=== PATIENT | female | born 1985 | race Caucasian/White ===

== ENCOUNTER → 2016-10-15 | Outpatient (CLI) | payer OTHER ==
[~2016-10-15] VITALS: Ht 170.2 cm; Wt 103.0 kg
[~2016-10-15] MED LIST: NEXI40CA PO; PRENTAB9 PO; diphenhydrAMINE 25 MG CAP PO ONE
[2016-10-15 11:09] VITALS: BP 127/69
--- NOTE | 2016-10-15 13:02 | IPNPDOC ---
Obstetrical Progress Note Date of Service The patient was seen on 10/15/16 at 12:38. Progress Note [id number] @ 1243 30 yo @ 37+6 by LMP and [id number] presents to L&D with c/o CTXs Q 5 -10 min. Reports she has had increased discharge today. Denies DFM, VB and LOF. GBS negative. S: Pt is uncomfortable with CTXs. She is able to talk through CTXs. Spouse is at bedside. Pt reports this happened with her last babe and she was induced after weeks of CTXs with no cervical change. Pt reports IC last night. Reports she was Fingertip in the clinic last week. States she has had CTX Q 3- 5 min since midnight and they have not changed. She continues to be able to walk and talk through the CTXs. O: VS: WNL, afebrile FHR: 130, moderate variability, + accels, no decels CTX: Q 2-7 min, lasting < 90 seconds, palpated as moderate, resting tone palpated as soft. SVE: 1/thick/high, soft/ant/vtx Sterile speculum exam: negative valsalva, negative pooling, negative nitrazine, negative ferning, + sperm noted on slide A: 30 yo @ 37+6 by LMP with an ELENA of [id number] presents to L&D in Latent Labor vs. False Labor. Reactive NST. P: Offered pt walk for 2 hours and return for a recheck or go home on quarters and try to rest. Pt would like to go home. Strict return precautions given to patient for increasing strength or increasing frequency of CTXs. If she unable to talk through the CTXs she needs to return to the hospital carmen. Strict return precautions for DFM, LOF and VB. Pt and spouse verbalized understanding. Pt given 25 mg of benadryl PO to assist the patient with rest at home. Jesse PEREZ CNM VS, I&O, 24H, Fishbone Vital Signs/I&O Vital Signs Date Time Temp Pulse Resp B/P Pulse Ox O2 Delivery O2 Flow Rate FiO2 10/15/16 11:09 98.6 65 18 127/69 JESSE RHODES CNM Oct 15, 2016 13:02
== END | disposition home or self-care (01) ==
LOC: M LDO 10:50
PROVIDERS: ATTEND Midwife
DX: O47.1 False labor at or after 37 completed weeks of gestation (principal); Z3A.37 37 weeks gestation of pregnancy

== ENCOUNTER 2016-10-18 00:18 | Outpatient (CLI) | payer OTHER ==
[~2016-10-18 00:18] MED LIST changes: -diphenhydrAMINE 25 MG CAP PO ONE
== END 2016-10-18 02:50 | disposition home or self-care (01) ==
LOC: M LDO 00:18
PROVIDERS: ATTEND Advanced Practice Midwife
DX: O47.1 False labor at or after 37 completed weeks of gestation (principal); Z3A.38 38 weeks gestation of pregnancy; O40.3XX0 Polyhydramnios, third trimester, not applicable or unspecified

== ENCOUNTER 2016-10-30 09:48 | Inpatient (IN) | payer OTHER ==
[2016-10-30] VITALS (23 sets, daily range): BP systolic 101–135; BP diastolic 55–75
[~2016-10-30] VITALS: Ht 170.2 cm; Wt 105.0 kg
[2016-10-30] MEDS ORDERED: LACTATED RINGER'S 1000 ML IV ONE (10:15)
[2016-10-30 10:34] LABS: MEAN CORPUSCULAR HEMOGLOBIN 30.5 pg (27.0-33.0); MEAN CORPUSCULAR HGB CONC 34.3 g/dl (32.0-36.5); MEAN CORPUSCULAR VOLUME 88.9 fl (80.0-96.0); RED CELL DISTRIBUTION WIDTH 12.5 % (11.5-14.5); WHITE BLOOD COUNT 12.8 K/mm3 (4.0-10.0)
[2016-10-30] MEDS ORDERED: FENTANYL 2MCG/ML ROPIVACAINE 0.2% NACL 250 ML CADD As Ordered ONE (10:38)
[2016-10-30] MEDS: LR 1,000 ML IV SCH (11:19)
[2016-10-30] MEDS ORDERED: ONDANSETRON 4MG/2ML VIAL (J2405) IV PRN (12:30)
[2016-10-30] MEDS ORDERED: ePHEDrine SULFATE 25 MG/5 ML(5MG/ML) SYRINGE IV PRN (12:30)
[2016-10-30] MEDS ORDERED: REFRIGERATOR IV KEYS XX PRN (12:30)
[2016-10-30] MEDS ORDERED: EPIDURAL COMMENT XX SCH (12:30)
[2016-10-30] MEDS ORDERED: diphenhydrAMINE INJ 50MG/ML VIAL (J1200) IV PRN (12:30)
[2016-10-30] MEDS ORDERED: NALOXONE INJ 0.4 MG/1 ML VIAL (J2310) IV PRN (12:30)
[2016-10-30] MEDS ORDERED: LACTATED RINGER'S 1000 ML IV PRN (12:30)
[2016-10-30] MEDS ORDERED: EPIDURAL/PCA KEYS XX PRN (12:30)
[2016-10-30] MEDS ORDERED: FENTANYL/ROPIVACAINE/NACL CADD 250 ML EPIDURAL SCH (12:30)
[2016-10-30] MEDS ORDERED: OXYTOCIN 30 UNITS IN 0.9% NaCl 500ML IV BAG (J2590) As Ordered ONE (13:33)
[2016-10-30 14:18] LABS: CORD GAS ABE A -4.4; CORD GAS ABE V -4.1; CORD GAS HCO3 A 25.3 MEQ/L; CORD GAS HCO3 V 21.7 MEQ/L; CORD GAS O2 SAT A 20.6 %; CORD GAS PCO2 A 66.6 mmHg; CORD GAS PCO2 V 42.2 mmHg; CORD GAS PH A 7.198 UNITS; CORD GAS PH V 7.329 UNITS; CORD GAS PO2 A 15.3 mmHg; CORD GAS PO2 V 22.4 mmHg; CORD GAS TCO2 A 27.4 MEQ/L
[2016-10-30] MEDS ORDERED: OXYTOCIN DRIP 30 UNITS in APPROPRIATE DILUENT 1 EA IV SCH (15:28)
[2016-10-30] MEDS ORDERED: MEASLES,MUMPS,RUBELLA VACCINE INJ (MMR-II) (90707) SC SCH (15:30)
[2016-10-30] MEDS ORDERED: DIBUCAINE 1% OINTMENT 30GM TOP PRN (15:30)
[2016-10-30] MEDS ORDERED: RHOGAM 300 MCG (1500 IU) INJ (J2790) IM SCH (15:30)
[2016-10-30] MEDS ORDERED: OXYTOCIN INJ 10 UNITS/ML VIAL (J2590) IV ONE (15:30)
[2016-10-30] MEDS ORDERED: ANUSOL HC CREAM 30GM TOP PRN (15:30)
[2016-10-30] MEDS ORDERED: MOM 30ML SUSPENSION UDC PO PRN (15:30)
[2016-10-30] MEDS ORDERED: DOCUSATE SODIUM 100 MG CAP PO PRN (15:30)
[2016-10-30] MEDS ORDERED: METHYLERGONOVINE MALEATE 0.2 MG TAB PO PRN (15:30)
[2016-10-30] MEDS ORDERED: LIDOCAINE 1% SDV 5 ML VIAL SC ONE (15:45)
[2016-10-30] MEDS ORDERED: ACETAMINOPHEN SUSP 160 MG/5 ML UDC PO PRN (15:45)
[2016-10-30] MEDS ORDERED: OXYTOCIN INJ 10 UNITS/ML VIAL (J2590) As Ordered ONE (17:47)
--- NOTE | 2016-10-30 18:59 | DN ---
DATE: 10/30/2016 DELIVERY NOTE: This lady, came in in active labor, found to be 5-6 cm, bulging membranes, known history of polyhydramnios. With an epidural in place, she had a spontaneous rupture of membranes, a moderate amount of clear liquor, was of eventually found to be fully dilated in the POP position, delivered in occiput posterior position a live male infant weighing 3956 grams, 8 pounds 12 ounces. scores of 9 and 9 at one and five minutes respectively. Arterial and venous pH was performed. Arterial pH was 7.19, base excess -4.4, venous pH 7.32, base excess -4.1. Placenta delivered spontaneously thereafter. Three-vessel in the cord, membranes and tissues intact. Evaluation examination of the perineum, the lateral sidewalls, the cervix anteriorly all appeared to be intact. The uterus contracted well down on Pitocin. The patient and baby tolerated procedure well. Copy To: Farhat Dc OB
--- NOTE | 2016-10-30 19:01 | IPN ---
DATE: 10/30/2016 This patient and requested circumcision of their male . After discussing the risks and benefits of circumcision, the penile block and aftercare, signed and witnessed consent form after expressing understanding. We await the clearance by the lump maker. Copy To: Farhat CARTER
--- NOTE | 2016-10-30 19:07 | HPE ---
DATE OF ADMISSION: 10/30/2016 This lady is a 30-year-old 3, para 2, last menstrual period (LMP) 01/24/2016, estimated date of confinement (EDC) 10/30/2016 at 40 weeks gestation, active labor, 5-6 cm dilated, bulging membranes with polyhydramnios. Risk factor is transfer of care at 34 weeks, Rh negative and polyhydramnios. PAST HISTORY: 2010: 40 weeks, spontaneous vaginal delivery, female, 7 pounds 6 ounces. 2013: At 40 weeks, spontaneous vaginal delivery, male, 8 pounds 13 ounces. On examination today, she is distressed. Symphysis fundus height is 43, bulging membranes, 5-6 cm. Category one strip. She is GBS negative. There is no loss of fluid. The rest of her examination is she is normocephalic, atraumatic. Neck: Full range of motions. Pupils equal and reactive to light. Distal pulses are symmetric. No evidence of deep vein thrombosis (DVT) pulmonary embolism (PE), or superficial phlebitis. No wheezes or rhonchi. No costovertebral angle tenderness. Symphysis fundal height is 43. Four quadrant bowel sounds are noted. Membranes are intact. No rashes, lesions or pruritus. No arthralgia or myalgia. No complaint of cough, wheeze, shortness of breath or dyspnea on exertion. No chest pain. No bleeding. Neurologic: complete. No incontinence, urgency. No nausea, vomiting, diarrhea or constipation. No diabetic issues. No IC DESIGNER CUSTOM issues. Family history is noncontributory. She does not smoke or drink or abuse drugs. She is . There is no domestic violence. Labs show A negative, HIV negative, hepatitis negative, RPR negative, rubella immune. Varicella by history. Pap normal. Urine negative. Gonorrhea and chlamydia are negative. 1-hour glucose of 92 and GBS negative. In summary, we have a term gestation in active labor. Anticipate to hydrate, epidural and anticipate spontaneous vaginal delivery with controlled artificial rupture of membranes (AROM) if needed. Copy To: Farhat Dc OB
[2016-10-30] MEDS: IBUPROFEN 800 MG TAB PO PRN (22:35)
[2016-10-31 05:33] VITALS: BP 117/76
[2016-10-31 07:01] LABS: MEAN CORPUSCULAR HEMOGLOBIN 29.3 pg (27.0-33.0); MEAN CORPUSCULAR HGB CONC 32.8 g/dl (32.0-36.5); MEAN CORPUSCULAR VOLUME 89.4 fl (80.0-96.0); RED CELL DISTRIBUTION WIDTH 12.3 % (11.5-14.5)
[2016-10-31] MEDS: PRENATAL VITAMIN TAB PO SCH (07:32)
[2016-10-31] MEDS: IBUPROFEN 800 MG TAB PO PRN (14:22)
[2016-10-31 18:44] VITALS: BP 132/80
[2016-11-01] MEDS: IBUPROFEN 800 MG TAB PO PRN (05:44)
[2016-11-01 06:16] VITALS: BP 139/79
[2016-11-01] MEDS: PRENATAL VITAMIN TAB PO SCH (07:51)
[2016-11-01] MEDS ORDERED: ANUS2.5C2 TOP (09:49)
[2016-11-01] MEDS ORDERED: IBUP-1114 PO (09:49)
[2016-11-01] MEDS ORDERED: DIBU1OIN TOP (09:49)
--- NOTE | 2016-11-01 11:03 | IPN ---
DATE: 10/31/2016 This lady is a 1, now para 3 admitted for spontaneous active labor, delivered a live male , 8 pounds 12 ounces, 3956 grams, scores of 9 and 9 at 1 and 5 minutes, respectively. Arterial pH was 7.19, base excess -4.4, venous pH 7.32, base excess -4.1. Today, her blood pressure is 117/76, respirations are 18, pulse 91, temperature 97.6. Admitting hemoglobin is 12.7, hematocrit 36.9, platelets are 230. We discussed phlebitis, cystitis, mastitis, endometritis and cellulitis, diet, exercise, pain management, perineal, breast and wound care. control is going to be oral contraceptives at her 6-week checkup. The rest of the examination is unremarkable. She is neuro complete. Atraumatic. Neck with full range of motion. Pupils equal and reactive to light. Distal pulses are symmetric. No evidence of DVT, PE or superficial phlebitis. Chest is clear bilaterally to the bases. No wheezes or rhonchi. No costovertebral angle tenderness. Uterus two below. Lochia is moderate. Perineum is healing. She has no rash or lesions or pruritus. No arthralgia, myalgia. She is not complaining of cough, wheezes, shortness of breath or dyspnea on exertion. She is not bleeding. Neuro complete. No incontinency, urgency, or frequency. No nausea, vomiting, diarrhea or constipation. Our plan is for discharge tomorrow with oral contraceptives and routine medications. Followup in six weeks' time for visit.
--- NOTE | 2016-11-02 13:46 | DSES ---
DATE OF ADMISSION: 10/30/2016 DATE OF DISCHARGE: 11/01/2016 This lady is a 30-year-old 3 now para 3 who came in in spontaneous labor, delivered a live male 8 pounds 12 ounces, 3956 grams scores of 9 and 9 at one and five minutes, respectively. Arterial pH was 7.19, base excess -4.4, venous pH was 7.32, base excess -4.1. Her admitting hemoglobin was 12.7, hematocrit 36.9, platelets are 230. Discharge hemoglobin is 12.5, hematocrit 38.6 and platelets are 221. Her vital signs today, her blood pressure is 139/79, respirations are 18, pulse 72, temperature 96.6. The only issue she had was polyhydramnios at the time of delivery and it was noted in the pre delivery form. We discussed phlebitis, cystitis, mastitis, endometritis and cellulitis, diet, exercise, pain management, perineal, breast, and wound care. She is planning on using oral contraceptives. She was given her medications and oral contraceptives. Her oral contraceptives will be started in six weeks' time. Presently, she is normocephalic, atraumatic. Neck full range of motion. Pupils equal and reactive to light. Distal pulses are symmetric. No evidence of DVT, PE or superficial phlebitis. Chest is clear bilaterally to bases. No wheezes or rhonchi. Uterus is nontender. Four quadrant bowel sounds are noted. Uterus is two below. Perineum is healing. No rashes, lesions or pruritus. No arthralgia or myalgia. No complaints of cough, wheezes, shortness of breath or dyspnea on exertion. She has no chest pain. She is not bleeding. Neurologically complete. No incontinency, urgency, or frequency. No nausea, vomiting, diarrhea or constipation. No KILN PLACER issues. Past history is unremarkable. She does not smoke or drink or abuse drugs. She is . There is no domestic violence. In summary, we have a term gestation, delivered a live male infant, to be discharged today. Given her medications and has a 6-week appointment for checkup.
== END 2016-11-01 13:25 | disposition home or self-care (01) | DRG 775 ==
LOC: M LDO 09:48 → M LDI 10:02 → M OBS 16:41
PROVIDERS: ADMIT Obstetrics & Gynecology; ATTEND Obstetrics & Gynecology
PROC: 10E0XZZ Delivery of Products of Conception, External Approach (ICD-10-PCS; principal; 2016-10-30)
DX: O40.3XX0 Polyhydramnios, third trimester, not applicable or unspecified (principal); Z37.0 Single live birth; Z3A.40 40 weeks gestation of pregnancy; O48.0 Post-term pregnancy

== ENCOUNTER → 2017-01-19 | Day surgery (SDC) | payer OTHER ==
[~2017-01-19] VITALS: Ht 170.2 cm; Wt 89.4 kg
[~2017-01-19] MED LIST changes: +ANUS2.5C2 TOP; +BUPIVACAINE HCL 0.25% 30 ML VIAL As Ordered ONE; +DIBU1OIN TOP; +IBUP-1114 PO; +KETOROLAC 60 MG/2 ML VIAL (J1885) As Ordered ONE; +LIDOCAINE 1% MDV 20ML VIAL SC PRN; +LIDOCAINE 2% INJ 100 MG/5 ML SDV (FOR ANES.) As Ordered ONE; +LR 1,000 ML IV ONE; +MIDAZOLAM INJ 2 MG/2 ML VIAL (J2250) As Ordered ONE; +MULTCAP8 PO; +ONDANSETRON 4MG/2ML VIAL (J2405) As Ordered ONE; +ONDANSETRON 4MG/2ML VIAL (J2405) IV PRN; +PERCOCET 5MG/325MG TAB PO PRN; +PROPOFOL 200 MG/20 ML VIAL As Ordered ONE; +ROCURONIUM BROMIDE 50 MG/5 ML VIAL As Ordered ONE; +SILVER NITRATE APPLICATOR As Ordered ONE; +[UNRECOGNIZED DRUG - CODE] PO; +dexameTHASONE 4 MG/ML 1ML VIAL (J1100) As Ordered ONE; +fentaNYL 100 MCG/2 ML INJECTION (J3010) As Ordered ONE; +fentaNYL 100 MCG/2 ML INJECTION (J3010) IV PRN
[2017-01-19 09:05] LABS: CONTROL LINE HCG INT CTR LINE PRESENT
[2017-01-19 14:05] VITALS: BP 108/59
--- NOTE | 2017-01-19 22:03 | RO ---
DATE OF PROCEDURE: 01/19/2017 PREPROCEDURE DIAGNOSIS: Satisfied parity. POSTPROCEDURE DIAGNOSIS: Satisfied parity. PROCEDURE: Laparoscopic bilateral salpingectomy. SURGEON: Annette Horn MD BUSINESS LINE MANAGER: Bipin Gómez ANESTHESIA: STEPHANIE CLINICAL SERVICE: GARLAND MAKER INDICATION FOR OPERATION: Tess is a 31-year-old 3, para 3 desiring permanent sterilization, having satisfied parity. MATERIAL FORWARDED TO THE LAB: Bilateral fallopian tubes. DESCRIPTION OF FINDINGS: Exam under anesthesia revealed a 6-week size retroverted uterus of normal size, shape and contour with no adnexal masses. Laparoscopic findings included a normal uterus, fallopian tubes, ovaries, liver edge. Appendix was not visualized. She had a small amount of adhesion between the sigmoid colon and the left ovarian fossa. INFECTION CLASSIFICATION: 2. ESTIMATED BLOOD LOSS: 5 mL. IV FLUIDS: 1500 mL of lactated Ringer's. URINE OUTPUT: 600 mL. DESCRIPTION OF PROCEDURE: After obtaining informed consent, Tess was taken to the operating room. General endotracheal anesthesia was established, and she was placed in low lithotomy position. Exam under anesthesia was performed with the findings as noted above. She was prepped and draped in the usual sterile fashion, placed in Trendelenburg position. Guevara catheter was placed. Knott speculum was placed in the vagina and visualization of the cervix was obtained. Anterior lip of the cervix was grasped with a single-tooth tenaculum. A twtMoblka uterine manipulator was placed into the cervix, and the tenaculum was removed with site hemostasis observed. The bivalve speculum was removed. She was taken out of Trendelenburg position, and a 5 mm incision was made in the infraumbilical fold beneath the subcutaneous tissue. Chiquis clamp was used to spread the subcutaneous tissue. Lower abdominal wall was manually grabbed and lifted up and an Optiview trocar was placed at a 90-degree angle. Laparoscope was advanced through the port and intraabdominal placement was confirmed. Continuous flow carbon dioxide began to establish a pneumoperitoneum at 15 mmHg pressure. We then did a pelvic and abdominal survey with findings as previously described. Normal pelvic anatomy. No evidence of endometriosis. A small amount of adhesion located between the sigmoid colon and the left pelvic wall near the ovarian fossa. We then placed two more 5 mm trocars under direct visualization laterally in the right and left lower quadrants, taking care to avoid any prominent vessels. At that point, we used the LigaSure device to cauterize and excise both of the fallopian tubes, and they were lifted up through the ports. Complete hemostasis was noted in the pelvis on further inspection and the ports were removed after releasing the pneumoperitoneum. Incisions were reapproximated with #4-0 Monocryl and Dermabond. All instruments were removed from the vagina. The Hulka uterine manipulator was removed and silver nitrate was used for hemostasis of that site on the cervix. All counts were correct times twoChristophe Pulido tolerated the procedure well, and she was awakened from general anesthesia and taken to the recovery room in good condition. JI
== END | disposition home or self-care (01) ==
LOC: M SDC 07:36
PROVIDERS: ATTEND Obstetrics & Gynecology
DX: Z30.2 Encounter for sterilization (principal); Z87.891 Personal history of nicotine dependence
CPT/HCPCS: 36415; 58661; 84703; 85014; 85018; 86850; 86870; 86900; 86901; 88302; J1100; J1885; J2250; J2405; J3010

== ENCOUNTER → 2018-05-25 | Outpatient (CLI) | payer OTHER ==
[~2018-05-25] MED LIST changes: -ANUS2.5C2 TOP; -BUPIVACAINE HCL 0.25% 30 ML VIAL As Ordered ONE; -DIBU1OIN TOP; +GASTROGRAFIN SOLUTION 30ML (Q9963) As Ordered; -IBUP-1114 PO; +ISOVUE-370 76% 100ML VIAL (Q9967) As Ordered; -KETOROLAC 60 MG/2 ML VIAL (J1885) As Ordered ONE; -LIDOCAINE 1% MDV 20ML VIAL SC PRN; -LIDOCAINE 2% INJ 100 MG/5 ML SDV (FOR ANES.) As Ordered ONE; -LR 1,000 ML IV ONE; -MIDAZOLAM INJ 2 MG/2 ML VIAL (J2250) As Ordered ONE; -MULTCAP8 PO; -NEXI40CA PO; -ONDANSETRON 4MG/2ML VIAL (J2405) As Ordered ONE; -ONDANSETRON 4MG/2ML VIAL (J2405) IV PRN; -PERCOCET 5MG/325MG TAB PO PRN; -PRENTAB9 PO; -PROPOFOL 200 MG/20 ML VIAL As Ordered ONE; -ROCURONIUM BROMIDE 50 MG/5 ML VIAL As Ordered ONE; -SILVER NITRATE APPLICATOR As Ordered ONE; -[UNRECOGNIZED DRUG - CODE] PO; -dexameTHASONE 4 MG/ML 1ML VIAL (J1100) As Ordered ONE; -fentaNYL 100 MCG/2 ML INJECTION (J3010) As Ordered ONE; -fentaNYL 100 MCG/2 ML INJECTION (J3010) IV PRN
== END ==
LOC: M RAD 16:11
DX: K92.1 Melena (principal); K57.30 Diverticulosis of large intestine without perforation or abscess without bleeding
CPT/HCPCS: Q9963